=== PATIENT | male | born 1970 | race Caucasian/White ===

== ENCOUNTER 2017-08-29 21:05 | Observation (INO) | payer SELFPAY ==
[2017-08-29] MEDS ORDERED: Sodium Chloride 0.9% 10 ML Syringe FLUSH PRN (21:34)
[2017-08-29] MEDS ORDERED: Sodium Chloride 0.9% 1,000 ML IV ONE (21:34)
--- NOTE | 2017-08-29 21:59 | EDM.PDOC ---
ED HPI GENERAL MEDICAL PROBLEM - General Chief Complaint: Neurological Problem Stated Complaint: Seizure Time Seen by Provider: 08/29/17 21:05 Source of Information: Reports: Patient, EMS Notes Reviewed, RN, RN Notes Reviewed History Limitations: Reports: No Limitations - History of Present Illness INITIAL COMMENTS - FREE TEXT/NARRATIVE: Patient is brought to the emergency room at [facility] via [facility] ambulance after he had a witnessed seizure while he was at work. The seizure happened around 7:30 this evening. According to the EMS crew, the patient was crouching down when he fell and hit his head and started to have a seizure. It is unknown how long the patient had a seizure. The patient does not have any history of any seizures. The patient does not have any medical history. Upon arrival, the patient was somewhat confused. The patient complained of left lower lip swelling and pain. The patient denied any headache. The patient states he did have some blurry vision of the left eye. The patient denies any loss of bowel or bladder function. The patient denied any chest pain or shortness of breath. Patient denies any abdominal pain. No nausea vomiting or diarrhea. The patient appears to be somewhat post ictal. Onset: Today, Sudden Onset Date: 08/29/17 Onset Time: 19:30 - Related Data Allergies Allergy/AdvReac Type Severity Reaction Status Date / Time No Known Allergies Allergy Verified 08/29/17 21:57 Home Meds: Home Meds . [No Known Home Meds] 08/29/17 [History] ED ROS GENERAL - Review of Systems Review Of Systems: See Below Constitutional: Denies: Fever, Chills, Weakness HEENT: Reports: Vision Change (Left eye blurriness) Respiratory: Denies: Shortness of Breath, Cough Cardiovascular: Denies: Chest Pain, Palpitations GI/Abdominal: Denies: Abdominal Pain, Nausea, Vomiting Musculoskeletal: Denies: Neck Pain, Back Pain Skin: Reports: Wound (swelling of left lower lip) Neurological: Reports: Confusion. Denies: Headache, Numbness, Paresthesia, Tingling - Physical Exam Exam: See Below Exam Limited By: No Limitations General Appearance: Alert, No Apparent Distress Eye Exam: Bilateral Eye: EOMI, Normal Inspection, PERRL Ears: Normal External Exam, Normal Canal, Normal TMs Nose: Normal Inspection Throat/Mouth: No Airway Compromise, Other (swelling of left lower lip). No: Evidence of Tongue Biting Head Exam: Atraumatic, Normocephalic Neck: Supple Respiratory/Chest: No Respiratory Distress, Lungs Clear, Normal Breath Sounds Cardiovascular: Normal Peripheral Pulses, Regular Rate, Rhythm GI/Abdominal: Normal Bowel Sounds, Soft, Non-Tender Neuro Exam (Abbreviated): Alert, Confused, Disoriented Back Exam: Normal Inspection Extremities: Normal Inspection Skin Exam: Warm, Dry, Intact, Normal Color EKG INTERPRETATION EKG Date: 08/29/17 Time: 21:56 Rhythm: NSR Rate (Beats/Min): 92 [place]: Normal P-Wave: Present QRS: Normal ST-T: Normal QT: Normal OR/PQ Interval: 0.17 Comparison: NA - No Prior EKG EKG Interpretation Comments: 1. Sinus Rhythm 2. Moderate IVCD 3. Borderline ECG Course - Orders/Labs/Meds Orders: Active Orders 24 hr Category Date Time Status EKG Documentation Completion [RC] STAT Care 08/29/17 21:32 Active Head wo Cont [CT] Stat Exams 08/29/17 21:18 Taken Sodium Chloride 0.9% [Saline Flush] Med 08/29/17 21:34 Active 10 ml FLUSH ASDIRECTED PRN Peripheral IV Insertion Adult [OM.PC] Routine Oth 08/29/17 21:34 Ordered Medication Orders Sodium Chloride (Saline Flush) 10 ml FLUSH ASDIRECTED PRN PRN Reason: Keep Vein Open Labs: Laboratory Tests 08/29/17 08/29/17 08/29/17 Range/Units 21:49 21:49 21:49 WBC 6.0 (4.0-10.0) x10^3/uL RBC 3.63 L (4.5-6.0) x10^6/uL Hgb 13.6 L (14.0-18.0) g/dL Hct 37.3 L (40.0-52.0) % MCV 102.8 H (78.0-93.0) fL MCH 37.5 H (26.0-32.0) pg MCHC 36.5 H (32.0-36.0) g/dL RDW Coeff of Brea 11.9 (10.0-15.0) % Plt Count 70 L (130-400) x10^3/uL Neut % (Auto) 79.8 (50.0-80.0) % Lymph % (Auto) 12.6 L (25.0-50.0) % [place] % (Auto) 6.9 (2.0-11.0) % Eos % (Auto) 0.2 (0.0-4.0) % Baso % (Auto) 0.5 (0.2-1.2) % Sodium 135 L (136-145) mmol/L Potassium 3.9 (3.5-5.1) mmol/L Chloride 97 L (98-107) mmol/L Carbon Dioxide 26 (21-32) mmol/L BUN 16 (7-18) mg/dL Creatinine 1.0 (0.70-1.30) mg/dL Est Cr Clr Drug Dosing TNP Estimated GFR (MDRD) > 60 Glucose 104 (74-106) mg/dL Lactic Acid 1.8 (0.4-2.0) mmol/L Calcium 9.4 (8.5-10.1) mg/dL Corrected Calcium 9.24 (8.5-10.1) mg/dL Total Bilirubin 1.7 H (0.2-1.0) mg/dL AST 46 H (15-37) U/L ALT 40 (16-63) U/L Alkaline Phosphatase 66 (46-116) U/L Creatine Kinase 257 (39-308) U/L Creatine Kinase Index 0.7 (0.0-4.0) % CK-MB (CK-2) 1.7 (0.0-3.6) ng/mL Troponin I < 0.017 (<=0.056) ng/mL C-Reactive Protein (<=0.9) mg/dL Total Protein 7.5 (6.4-8.2) g/dL Albumin 4.2 (3.4-5.0) g/dL Globulin 3.3 Albumin/Globulin Ratio 1.27 Urine Color (YELLOW) Urine Appearance (CLEAR) Urine pH (5.0-8.0) Ur Specific [place] Urine Protein (NEGATIVE) mg/dL Urine Glucose (UA) (NEGATIVE) mg/dL Urine Ketones (NEGATIVE) mg/dL Urine Occult Blood (NEGATIVE) Urine Nitrite (NEGATIVE) Urine Bilirubin (NEGATIVE) Urine Urobilinogen (0.2) EU/dL Ur Leukocyte Esterase (NEGATIVE) Urine RBC (NOT SEEN) /HPF Urine WBC (NOT SEEN) /HPF Ur Squamous Epith Cells (NEGATIVE) /HPF Urine Bacteria (NEGATIVE) /HPF Hyaline Casts (NEGATIVE) /HPF Urine Mucus (NEGATIVE) /LPF Urine Opiates Screen (NEAGTIVE) Ur Buprenorphine Scrn (NEGATIVE) Ur Oxycodone Screen (NEGATIVE) Urine Methadone Screen (NEGATIVE) Ur Barbiturates Screen (NEGATIVE) Ur Tricyclics Screen (NEGATIVE) Ur Amphetamine Screen (NEGATIVE) U Methamphetamines Scrn (NEGATIVE) Urine MDMA Screen (NEGATIVE) U Benzodiazepines Scrn (NEGATIVE) U Cocaine Metab Screen (NEGATIVE) U Marijuana (THC) Screen (NEGATIVE) Ethyl Alcohol 3 (0-3) mg/dL 08/29/17 08/29/17 08/29/17 Range/Units 21:49 21:55 21:55 WBC (4.0-10.0) x10^3/uL RBC (4.5-6.0) x10^6/uL Hgb (14.0-18.0) g/dL Hct (40.0-52.0) % MCV (78.0-93.0) fL MCH (26.0-32.0) pg MCHC (32.0-36.0) g/dL RDW Coeff of Brea (10.0-15.0) % Plt Count (130-400) x10^3/uL Neut % (Auto) (50.0-80.0) % Lymph % (Auto) (25.0-50.0) % [place] % (Auto) (2.0-11.0) % Eos % (Auto) (0.0-4.0) % Baso % (Auto) (0.2-1.2) % Sodium (136-145) mmol/L Potassium (3.5-5.1) mmol/L Chloride (98-107) mmol/L Carbon Dioxide (21-32) mmol/L BUN (7-18) mg/dL Creatinine (0.70-1.30) mg/dL Est Cr Clr Drug Dosing Estimated GFR (MDRD) Glucose (74-106) mg/dL Lactic Acid (0.4-2.0) mmol/L Calcium (8.5-10.1) mg/dL Corrected Calcium (8.5-10.1) mg/dL Total Bilirubin (0.2-1.0) mg/dL AST (15-37) U/L ALT (16-63) U/L Alkaline Phosphatase (46-116) U/L Creatine Kinase (39-308) U/L Creatine Kinase Index (0.0-4.0) % CK-MB (CK-2) (0.0-3.6) ng/mL Troponin I (<=0.056) ng/mL C-Reactive Protein < 0.2 (<=0.9) mg/dL Total Protein (6.4-8.2) g/dL Albumin (3.4-5.0) g/dL Globulin Albumin/Globulin Ratio Urine Color Amanda H (YELLOW) Urine Appearance Cloudy H (CLEAR) Urine pH 7.0 (5.0-8.0) Ur Specific [place] 1.020 Urine Protein 30 H (NEGATIVE) mg/dL Urine Glucose (UA) Negative (NEGATIVE) mg/dL Urine Ketones 15 H (NEGATIVE) mg/dL Urine Occult Blood Trace-intact H (NEGATIVE) Urine Nitrite Negative (NEGATIVE) Urine Bilirubin Small H (NEGATIVE) Urine Urobilinogen 1.0 (0.2) EU/dL Ur Leukocyte Esterase Negative (NEGATIVE) Urine RBC 0-5 (NOT SEEN) /HPF Urine WBC 0-5 (NOT SEEN) /HPF Ur Squamous Epith Cells Not seen (NEGATIVE) /HPF Urine Bacteria Few H (NEGATIVE) /HPF Hyaline Casts Few H (NEGATIVE) /HPF Urine Mucus Moderate H (NEGATIVE) /LPF Urine Opiates Screen Negative (NEAGTIVE) Ur Buprenorphine Scrn Negative (NEGATIVE) Ur Oxycodone Screen Negative (NEGATIVE) Urine Methadone Screen Negative (NEGATIVE) Ur Barbiturates Screen Negative (NEGATIVE) Ur Tricyclics Screen Negative (NEGATIVE) Ur Amphetamine Screen Negative (NEGATIVE) U Methamphetamines Scrn Negative (NEGATIVE) Urine MDMA Screen Negative (NEGATIVE) U Benzodiazepines Scrn Negative (NEGATIVE) U Cocaine Metab Screen Negative (NEGATIVE) U Marijuana (THC) Screen Negative (NEGATIVE) Ethyl Alcohol (0-3) mg/dL Meds: Medications Generic Name Dose Route Start Last Admin Trade Name Freq PRN Reason Stop Dose Admin Sodium Chloride 10 ml 08/29/17 21:34 Saline Flush FLUSH ASDIRECTED PRN Keep Vein Open Discontinued Medications Generic Name Dose Route Start Last Admin Trade Name Freq PRN Reason Stop Dose Admin Sodium Chloride 1,000 mls @ 999 mls/hr 08/29/17 21:34 Normal Saline IV 08/29/17 22:34 ONETIME ONE - Radiology Interpretation Free Text/Narrative:: CT Head: Normal head/brain CT - see scanned report in EMR CT Results Date: 08/29/17 CT Results Time: 10:36 Departure - Departure Time of Disposition: 23:34 Disposition: Refer to Observation Condition: Good Clinical Impression: Seizure Altered mental status Qualifiers: Altered mental status type: unspecified Qualified Code(s): R41.82 - Altered mental status, unspecified - Discharge Information - Problem List Review Problem List Initiated/Reviewed/Updated: Yes - My Orders Last 24 Hours: My Active Orders 08/29/17 21:18 Head wo Cont [CT] Stat 08/29/17 21:32 EKG Documentation Completion [RC] STAT 08/29/17 21:34 Sodium Chloride 0.9% [Saline Flush] 10 ml FLUSH ASDIRECTED PRN Peripheral IV Insertion Adult [OM.PC] Routine - Assessment/Plan Admission H&P: Please use this note as an admission H&P Last 24 Hours: My Active Orders 08/29/17 21:18 Head wo Cont [CT] Stat 08/29/17 21:32 EKG Documentation Completion [RC] STAT 08/29/17 21:34 Sodium Chloride 0.9% [Saline Flush] 10 ml FLUSH ASDIRECTED PRN Peripheral IV Insertion Adult [OM.PC] Routine Plan: Discussed labs and CT with patient. Will admit patient to observation overnight. Patient agrees with admission.
[2017-08-29 22:26] LABS: CHLORIDE,CL 97 mmol/L (98-107); SODIUM,NA 135 mmol/L (136-145)
[2017-08-30] MEDS ORDERED: Ondansetron 4 MG Tab.DIS PO PRN (02:19)
[2017-08-30] MEDS ORDERED: Acetaminophen 325 MG Tab PO PRN (02:19)
[2017-08-30] MEDS ORDERED: LORazepam 2 MG/ML MDV IVPUSH PRN (02:23)
--- NOTE | 2017-08-30 02:32 | PCM.HP ---
H&P History of Present Illness - General Date of Service: 08/29/17 Admit Problem/Dx: Seizure Source of Information: Patient, EMS Notes Reviewed, RN, RN Notes Reviewed History Limitations: Reports: No Limitations - History of Present Illness Initial Comments - Free Text/Narative: Patient presented to the emergency room at [facility] earlier this evening after he had a witnessed seizure at work. According to bystanders, the patient started having a seizure, and then he fell and hit his head and landed on the ground. It is unknown how long the patient had a seizure. Upon EMS arrival, the patient was only oriented to self. The patient does not have any past medical history. The patient has never had a seizure in the past. According to the patient's emergency contact. The patient stopped drinking alcohol Sunday. It is quite possible that the patient had a seizure from alcohol withdrawal. Upon arrival to the emergency room, the patient was much less confused. The patient states that he does not remember the seizure, but does remember being found on the ground. The patient was oriented 3 in the emergency room. The patient's only complaint was right lower lip pain the patient denied any headache. The patient states he did have some blurry vision of the left eye but that had resolved. The patient did not have any issues with bowel or bladder incontinence. The patient denied any chest pain or shortness of breath. Symptom Onset Date: 08/29/17 - Related Data Allergies/Adverse Reactions: Allergies Allergy/AdvReac Type Severity Reaction Status Date / Time No Known Allergies Allergy Verified 08/29/17 21:57 Home Medications: Home Meds . [No Known Home Meds] 08/29/17 [History] H&P Review of Systems - Review of Systems: Review Of Systems: See Below General: Denies: Fever, Chills, Weakness HEENT: Reports: Other (right lower lip pain and swelling) Pulmonary: Denies: Shortness of Breath, Cough Cardiovascular: Denies: Chest Pain, Palpitations Gastrointestinal: Denies: Abdominal Pain, Nausea, Vomiting Skin: Reports: No Symptoms Neurological: Reports: Confusion. Denies: Dizziness, Headache, Numbness, Paresthesia, Tingling Exam - Exam Exam: See Below - Vital Signs Vital Signs: Last Vital Signs Temp 37.1 C 08/30/17 02:00 Pulse 91 08/30/17 02:00 Resp 18 08/30/17 02:00 BP 126/79 08/30/17 02:00 Pulse Ox 98 08/30/17 02:00 Weight: 77.111 kg - Exam General: Alert, Oriented, Cooperative HEENT: Pupils Equal, Pupils Reactive, Other (swelling of right lower lip s/p trauma secondary to fall) Neck: Supple Lungs: Clear to Auscultation, Normal Respiratory Effort Cardiovascular: Regular Rate, Regular Rhythm, Normal S1, Normal S2 GI/Abdominal Exam: Normal Bowel Sounds, Soft, Non-Tender Extremities: Normal Inspection Peripheral Pulses: 2+: Radial (L), Radial (R) Skin: Warm, Dry, Intact Neuro Extensive - Mental Status: Alert, Oriented x3 - Patient Data Result Diagrams: 08/29/17 21:49 08/29/17 21:49 *Q Meaningful Use (ADM) - VTE *Q VTE Criteria *Q: VTE Mechanical Contraindications *Q: At Risk for Falls - Stroke *Q Stroke Criteria *Q: - AMI *Q AMI Criteria *Q: - Problem List (1) Seizure SNOMED Code(s): 11598168 ICD Code: R56.9 - UNSPECIFIED CONVULSIONS Status: Acute Priority: High Current Visit: Yes Onset Date: ~08/29/17 (2) Altered mental status SNOMED Code(s): 108373637 ICD Code: R41.82 - ALTERED MENTAL STATUS, UNSPECIFIED Status: Acute Priority: Medium Current Visit: Yes Onset Date: ~08/29/17 Qualifiers: Altered mental status type: unspecified Qualified Code(s): R41.82 - Altered mental status, unspecified Problem List Initiated/Reviewed/Updated: Yes Orders Last 24hrs: Active Orders 24 hr Category Date Time Status Patient Status [ADT] Routine ADT 08/30/17 02:20 Active Ambulate [RC] ASDIRECTED Care 08/30/17 02:19 Active Cardiac Monitoring [RC] CONTINUOUS Care 08/30/17 02:21 Active Height and Weight [RC] UPON Care 08/30/17 02:19 Active Intake and Output [RC] QSHIFT Care 08/30/17 02:21 Active May Shower [RC] ASDIRECTED Care 08/30/17 02:19 Active Oxygen Therapy [RC] PRN Care 08/30/17 02:20 Active VTE/DVT Education [RC] PER UNIT ROUTINE Care 02/08/18 02:20 Active Vital Signs [RC] Q4H Care 08/30/17 02:20 Active Consult to Case Management [CONS] Routine Cons 08/30/17 02:19 Active Regular Diet [DIET] Diet 08/30/17 Breakfast Active BASIC METABOLIC PANEL,BMP [CHEM] Routine Lab 08/30/17 05:11 Ordered CBC WITH AUTO DIFF [HEME] Routine Lab 08/30/17 05:11 Ordered Acetaminophen [Tylenol] Med 08/30/17 02:19 Active 650 mg PO Q4H PRN LORazepam [Ativan] Med 08/30/17 02:23 Active 2 mg IVPUSH Q4H PRN Nicotine [Habitrol] Med 08/30/17 02:30 Active 21 mg TRDERM DAILY Ondansetron [Zofran ODT] Med 08/30/17 02:19 Active 4 mg PO Q6H PRN Seizure Precautions [OM.PC] Routine Oth 08/30/17 02:19 Ordered Resuscitation Status Routine Resus Stat 08/30/17 02:19 Ordered Medication Orders Acetaminophen (Tylenol) 650 mg PO Q4H PRN PRN Reason: Pain (Mild 1-3)/fever Lorazepam (Ativan) 2 mg IVPUSH Q4H PRN PRN Reason: Seizures Nicotine (Habitrol) 21 mg TRDERM DAILY MADELEINE Ondansetron HCl (Zofran Odt) 4 mg PO Q6H PRN PRN Reason: nausea, able to take PO Sodium Chloride (Saline Flush) 10 ml FLUSH ASDIRECTED PRN PRN Reason: Keep Vein Open Assessment/Plan Comment:: 47-year-old male patient with no past medical history is admitted to the observation unit at [facility] with a primary diagnosis of seizure and altered mental status. After interviewing the patient at length, it was found the patient abruptly stopped drinking last Sunday evening, therefore the patient seizure could quite possibly be from abrupt alcohol withdrawal. The patient has no other medical history to explain the etiology of his seizure. The patient will be placed on seizure precautions. The patient is a full code 1. The patient does wish to be transferred to a higher level of care should the need arise. DVT prophylaxis will be early ambulation. We will recheck blood work in the morning. If the patient remains seizure-free during his stay he will be discharged home tomorrow. I would recommend that the patient establish care with a primary care provider as he may need follow-up with a neurologist. The patient CT scan of his head was negative for any acute pathology. Blood work was essentially normal. Drug screen is negative. Alcohol level was less than 3. I do not anticipate the patient being admitted for longer than 48 hours.
[2017-08-30] MEDS: Nicotine 21 MG/24 Hr Patch TRDERM SCH ×2 (02:37→07:52)
[2017-08-30 07:05] LABS: CHLORIDE,CL 98 mmol/L (98-107); SODIUM,NA 135 mmol/L (136-145)
[2017-08-30] MEDS ORDERED: Potassium Chloride 20 MEQ Tab.ER PO ONE (12:43)
[2017-08-30] MEDS ORDERED: LORazepam 1 MG Tab PO ONE (15:50)
--- NOTE | 2017-08-30 15:57 | PCM.DCSUM1 ---
Discharge Summary - Hospital Course HPI Initial Comments: Patient presented to the emergency room at [facility] last night via EMS after he had a witnessed seizure at work. According to bystanders, the patient started having a seizure, and then he fell and hit his head and landed on the ground. It is unknown how long the patient had a seizure. Upon EMS arrival, the patient was only oriented to self. The patient does not have any past medical history. The patient has never had a seizure in the past. According to the patient's emergency contact. The patient stopped drinking alcohol Sunday evening. It is quite possible that the patient had a seizure from alcohol withdrawal. Upon arrival to the emergency room, the patient was much less confused. The patient states that he does not remember the seizure, but does remember being found on the ground. The patient was oriented 3 in the emergency room. The patient's only complaint was right lower lip pain the patient denied any headache. The patient states he did have some blurry vision of the left eye but that had resolved. The patient did not have any issues with bowel or bladder incontinence. The patient denied any chest pain or shortness of breath. If was further learned after the patient's admission he stopped drinking alcohol abruptly Sunday. Patient had not disclosed this information upon his admission to the hospital. - Discharge Data Discharge Date: 08/30/17 Discharge Disposition: Home, Self-Care 01 Condition: Good - Discharge Diagnosis/Problem(s) (1) Seizure SNOMED Code(s): 73750334 ICD Code: R56.9 - UNSPECIFIED CONVULSIONS Status: Acute Priority: High Current Visit: Yes Onset Date: ~08/29/17 (2) Altered mental status SNOMED Code(s): 236071921 ICD Code: R41.82 - ALTERED MENTAL STATUS, UNSPECIFIED Status: Acute Priority: Medium Current Visit: Yes Onset Date: ~08/29/17 Qualifiers: Altered mental status type: unspecified Qualified Code(s): R41.82 - Altered mental status, unspecified (3) Alcohol abuse SNOMED Code(s): 34125465 ICD Code: F10.10 - ALCOHOL ABUSE, UNCOMPLICATED Status: Chronic Current Visit: Yes - Patient Summary/Data Operative Procedure(s) Performed: None Consults: Consultations 08/30/17 02:19 Consult to Case Management [CONS] Routine Labs Pending at D/C: None Recommended Follow-up Testing/Procedures: Recommend follow up with a PCP to establish care. Planned Operative Procedure(s) after DC: None Hospital Course: Overall, patient did very well during his hospital stay. Patient did not have any seizure activity. VSS. No fevers. Patient able to ambulate self around the room. No issues with BM or urination. Tolerated diet without problems. No chest Pain. No SOB. Does have a tremor secondary to alcohol use. - Patient Instructions Diet: Heart Healthy Diet Activity: No Strenuous Activities, Rest and Relax Today Driving: Do Not Drive Showering/Bathing: May Shower Notify Provider of: Fever, Increased Pain, Nausea and/or Vomiting - Discharge Plan Home Medications: Home Meds . [No Known Home Meds] 08/29/17 [History] Patient Handouts: Alcohol Use Disorder, Epilepsy - Discharge Summary/Plan Comment DC Time >30 min.: No Discharge Summary/Plan Comment: Patient will be discharge home today. Had a long extensive talk with the patient regarding seizure and alcohol use. Patient declined any help with his alcohol use. Will give patient one dose of Ativan prior to discharge to help with the tremors. Otherwise, recommend patient to set up an appointment with a PCP to help with followup for seizures and alcohol use. Patient would benefit from a Neurology appointment in the near future. I did discuss with the patient that his seizure probably happened from the abrupt cessation of the alcohol. - General Info Date of Service: 08/30/17 Admission Dx/Problem (Free Text: Seizure Alcohol Abuse Altered Mental Status Subjective Update: Patient offers not specific complaints. He does recognized he is shaky at times. He denies any headache and any vision changes. No chest pain. No SOB. No issues with BM's or urination. No fevers. VSS. Functional Status: Reports: Pain Controlled, Tolerating Diet, Ambulating, Urinating Numeric/FACES Score: 0 - Review of Systems General: Denies: Fever, Weakness, Chills Pulmonary: Denies: Shortness of Breath, Cough Cardiovascular: Denies: Chest Pain, Palpitations Gastrointestinal: Denies: Abdominal Pain, Nausea, Vomiting Skin: Reports: No Symptoms Neurological: Denies: Dizziness, Headache, Numbness, Paresthesia, Tingling - Patient Data Vitals - Most Recent: Last Vital Signs Temp 36.6 C 02/08/18 14:00 Pulse 87 08/30/17 14:00 Resp 16 08/30/17 14:00 BP 126/86 08/30/17 14:00 Pulse Ox 98 08/30/17 14:00 Weight - Most Recent: 77.111 kg I&O - Last 24 hours: Intake & Output 08/30/17 08/30/17 08/30/17 06:59 14:59 22:59 Intake Total 1510 600 Output Total 350 Balance 1160 600 Lab Results - Last 24 hrs: Laboratory Results - last 24 hr 08/30/17 08/30/17 Range/Units 06:13 06:13 WBC 6.0 (4.0-10.0) x10^3/uL RBC 3.57 L (4.5-6.0) x10^6/uL Hgb 13.3 L (14.0-18.0) g/dL Hct 37.2 L (40.0-52.0) % MCV 104.2 H (78.0-93.0) fL MCH 37.3 H (26.0-32.0) pg MCHC 35.8 (32.0-36.0) g/dL RDW Coeff of Brea 11.9 (10.0-15.0) % Plt Count 82 L (130-400) x10^3/uL Neut % (Auto) 61.3 (50.0-80.0) % Lymph % (Auto) 29.5 (25.0-50.0) % [place] % (Auto) 7.5 (2.0-11.0) % Eos % (Auto) 1.2 (0.0-4.0) % Baso % (Auto) 0.5 (0.2-1.2) % Sodium 135 L (136-145) mmol/L Potassium 3.1 L (3.5-5.1) mmol/L Chloride 98 (98-107) mmol/L Carbon Dioxide 26 (21-32) mmol/L BUN 13 (7-18) mg/dL Creatinine 0.9 (0.70-1.30) mg/dL Est Cr Clr Drug Dosing 100.28 mL/min Estimated GFR (MDRD) > 60 Glucose 84 (74-106) mg/dL Calcium 9.1 (8.5-10.1) mg/dL Med Orders - Current: Current Medications Acetaminophen (Tylenol) 650 mg PO Q4H PRN PRN Reason: Pain (Mild 1-3)/fever Lorazepam (Ativan) 2 mg IVPUSH Q4H PRN PRN Reason: Seizures Lorazepam (Ativan) 1 mg PO ONETIME ONE Stop: 08/30/17 15:51 Nicotine (Habitrol) 21 mg TRDERM DAILY MADELEINE Last Admin: 08/30/17 07:52 Dose: 21 mg Ondansetron HCl (Zofran Odt) 4 mg PO Q6H PRN PRN Reason: nausea, able to take PO Sodium Chloride (Saline Flush) 10 ml FLUSH ASDIRECTED PRN PRN Reason: Keep Vein Open Discontinued Medications Sodium Chloride (Normal Saline) 1,000 mls @ 999 mls/hr IV ONETIME ONE Stop: 08/29/17 22:34 Last Admin: 08/29/17 21:05 Dose: 999 mls/hr Potassium Chloride (Klor-Con M20) 40 meq PO ONETIME ONE Stop: 08/30/17 12:44 Last Admin: 08/30/17 13:03 Dose: 40 meq - Exam General: Reports: Alert, Oriented, Cooperative, No Acute Distress HEENT: Reports: Pupils Equal, Pupils Reactive, EOMI Neck: Reports: Supple Lungs: Reports: Clear to Auscultation, Normal Respiratory Effort Cardiovascular: Reports: Regular Rate, Regular Rhythm GI/Abdominal Exam: Normal Bowel Sounds, Soft, Non-Tender Extremities: Normal Inspection Skin: Reports: Warm, Dry, Intact Neurological: Reports: No New Focal Deficit, Normal Speech *Q Meaningful Use (DIS) - VTE *Q VTE Criteria *Q: No fall risk at time of discharge VTE Mechanical Contraindications *Q: At Risk for Falls - Stroke *Q Stroke Criteria *Q: - AMI *Q AMI Criteria *Q:
== END 2017-08-30 16:25 | disposition home or self-care (01) ==
LOC: VM.ED 21:05 → VM.MS 23:35
PROVIDERS: ADMIT Nurse Practitioner Family; ATTEND Nurse Practitioner Family
DX: R56.9 Unspecified convulsions (principal); R41.82 Altered mental status, unspecified; F10.10 Alcohol abuse, uncomplicated; S09.90XA Unspecified injury of head, initial encounter; W18.00XA Striking against unspecified object with subsequent fall, initial encounter
CPT/HCPCS: 36415; 70450; 80048; 80053; 80305; 81001; 82550; 82553; 83605; 84484; 85025; 86140; 96360; 99217; 99220; 99285; A9270-GY; G0378; G0480; J7030